=== PATIENT | female | born 1990 | race Caucasian/White ===

== ENCOUNTER 2018-05-20 08:44 | Emergency (ER) | payer OTHER ==
--- NOTE | 2018-05-20 09:08 | UC ---
Respiratory Complaint HPI - HPI Summary HPI Summary: 28 YO FEMALE who comes to clinic today with a chief complaint of cough and chest congestion and wheezing for 2 weeks. The symptoms got much worse over the last 1-2 days. She believes she had a fever yesterday. She's been using her albuterol inhaler. She took prednisone 10 mg by mouth that she had left over from a prior prescription this morning. The cough is productive but she is not seen the phlegm. There is minimal nasal congestion no sore throat except when she's coughing. She is a smoker and does have a history of pneumonia. - History of Current Complaint Stated Complaint: CHEST CONGESTION Time Seen by Provider: 05/20/18 08:54 Hx Last Menstrual Period: 06/25/16 - Allergies/Home Medications Allergies/Adverse Reactions: Allergies Allergy/AdvReac Type Severity Reaction Status Date / Time codeine Allergy Abdominal Verified 05/20/18 08:59 Pain hydrocodone Allergy Abdominal Verified 05/20/18 08:59 Pain ketorolac Allergy Abdominal Verified 05/20/18 08:59 Pain and Headache oxycodone Allergy Abdominal Verified 05/20/18 08:59 Pain Home Medications: Home Medications Albuterol HFA INHALER* [Ventolin HFA Inhaler*] 1 - 2 puff INH Q4H PRN 05/20/18 [ History Confirmed 05/20/18] predniSONE TAB* [Deltasone 10 MG TAB*] 10 mg PO ONCE 05/20/18 [History Confirmed 05/20/18] PMH/Surg Hx/FS Hx/Imm Hx Respiratory History: Asthma, Pneumonia - Surgical History Surgical History: Yes Surgery Procedure, Year, and Place: [facility] 2006. C section x 2. cholecystectomy - Family History Known Family History: Positive: Hypertension, Respiratory Disease - Social History Alcohol Use: None Substance Use Type: None Smoking Status (MU): Light Every Day Tobacco Smoker Type: Cigarettes Amount Used/How Often: < 1/2 ppd Length of Time of Smoking/Using Tobacco: since age 18 Have You Smoked in the Last Year: Yes Household Exposure Type: Cigarettes Review of Systems Constitutional: Fever, Chills Skin: Negative Eyes: Negative ENT: Nasal Discharge Respiratory: Shortness Of Breath, Cough Cardiovascular: Negative Gastrointestinal: Negative Genitourinary: Negative Motor: Negative Neurovascular: Negative Musculoskeletal: Negative Neurological: Negative Psychological: Negative Is Patient Immunocompromised?: No All Other Systems Reviewed And Are Negative: Yes Physical Exam Triage Information Reviewed: Yes Appearance: Ill-Appearing - MILD Vital Signs Reviewed: Yes ENT: Positive: Pharynx normal, Nasal congestion Neck exam: Normal Neck: Positive: Supple Respiratory: Positive: Rhonchi, Wheezing Cardiovascular: Positive: RRR Abdominal Exam: Normal Musculoskeletal: Positive: Strength Intact, ROM Intact Neurological Exam: Normal Psychological Exam: Normal Skin Exam: Normal Respiratory Course/Dx - Course Course Of Treatment: Symptoms greater than 10 days and a smoker. Follow-up primary care doctor if not completely improved for reevaluation sooner if worse. - Differential Dx/Diagnosis Provider Diagnoses: BRONCHITIS. ASTHMA EXACERBATION Discharge - Sign-Out/Discharge Documenting (check all that apply): Patient Departure All imaging exams completed and their final reports reviewed: No Studies - Discharge Plan Condition: Stable Disposition: HOME Prescriptions: Albuterol HFA INHALER* [Ventolin HFA Inhaler*] 2 puff INH Q4H PRN #1 mdi PRN Reason: Wheezing Azithromyxin MARKY (NF) [Z-Marky (Zithromax) 250 mg tabs #6] 2 tab PO .TODAY, THEN 1 DAILY #6 tab predniSONE TAB* [Deltasone 20 MG TAB*] 40 mg PO DAILY #10 tab Patient Education Materials: Asthma (ED), Acute Bronchitis (ED) Referrals: Candis Durham MD [Primary Care Provider] - Additional Instructions: FOLLOW UP WITH YOUR DOCTOR. GET RECHECKED FOR ANY WORSENING OF YOUR CONDITION OR QUESTIONS OR CONCERNS. - Billing Disposition and Condition Condition: STABLE Disposition: Home
[2018-05-20 09:16] VITALS: BP 124/68
--- OUTSIDE RECORDS SUMMARY | 2018-05-21 05:03 | XMS REPORT ---
:1990 External Reference #:[id number] Author Organization [facility] Address [address], [address] [place] [address] Phone [phone] Care Team Providers Name Role Phone Opal Chery PNP-BC, PRINTMAKER, Ibclc Care Team Information It Assistant Unavailable Opal Chery PNP-BC, PRINTMAKER, Ibclc Primary Care Physician Unavailable Payers Type Date Identification Numbers Payment Provider Subscriber Commercial Policy Number: [id number] Brenden Solorio PayID: [id number] [address] [address] [place] [address] Problems Date Description Provider Status Onset: 10/12/2012 Psoriasis Jessica Pugh MD Active Onset: 06/19/2016 Knee pain Jayce Rodriguez M.D. Active Onset: 06/19/2016 Ganglion cyst Jayce Rodriguez M.D. Active Onset: 06/19/2016 Ganglion/synovial cyst - knee Jayce Rodriguez M.D. Active Onset: 09/03/2016 Chondromalacia of patella Jayce Rodriguez M.D. 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 Cigarette Use Current Cigarette Smoker 1 Pack Daily x 7 years ETOH Use Denies alcohol use Recreational Drug Use Denies Drug Use Smoking Light tobacco smoker (10 or fewer cigarettes/day) Allergies, Adverse Reactions, Alerts Date Description Reaction Status Severity Comments 08/28/2011 Codeine vomiting, stomach pain active 07/30/2016 Hydrocodone active itchy and stomach pain 07/02/2010 NKDA inactive Medications Medication Date Status Form Strength Qnty SIG Indications Ordering Provider Ibuprofen 05/06/ Active Tablets 800mg 90tab 1 tab by Vik, 2018 s mouth Opal, three PNP-BC, times a PRINTMAKER, day as Ibclc needed Cyclobenzaprine 04/29/ Active Tablets 10mg 60tab 1 by mouth M25.552 Vik HCL 2018 s three Opal, times a PNP-BC, day as PRINTMAKER, needed Ibclc muscle spasms Ketorolac 04/29/ Active Tablets 10mg 30tab 1 tab M25.552 Vik Tromethamine 2017 s every 4-6 Opal, hours as PNP-BC, needed PRINTMAKER, pain Ibclc Albuterol Sulfate 11/19/ Active Nebulizer (2.5mg/3M 75ml nebulized Marva , 2018 L) 0.083% every 4 Candis, hours as M.D. needed Ventolin HFA 12/06/ Active Aerosol 108(90Bas 18gm 1-2 puffs R05 Marva, 2016 e) every 4-6 Candis, mcg/Act hours as M.D. needed Prednisone 05/06/ Hx Tablets 10mg QS 5 tabs Vik, 2018 - today, Opal, 05/13/ then 4 PNP-, 2018 tabs PRINTMAKER, tomorrow, Ibclc 3 tabs day 3, 2 tabs day 4, and 1 tab day 5 Nitrofurantoin 02/23/ Hx Capsules 100mg 14cap 1 by mouth N39.0 Vik Monohyd Macro 2017 twice a Opal, 04/29/ day PNP-, 2017 PRINTMAKER, Ibclc Guaifenesin 11/19/ Hx Tablets 400mg 30tab 1 tab by Marva, 2017 mouth Candis, 02/23/ every 6 M.D. 2018 hours as needed cough Levaquin 11/14/ Hx Tablets 750mg 7tabs 1 tab PO Q Marva, 2017 Candis, 02/23/ M.D. 2017 Tizanidine HCL 11/12/ Hx Tablets 4mg 30tab take 1 M62.838 Marva, 2017 tablet by Candis, 02/23/ mouth M.D. 2017 every 8 hours as needed Sulfamethoxazole/ 11/12/ Hx Tablets 800-160mg 14tab 1 tab by R30.0 Marva Trimethoprim DS 2017 mouth Candis, 02/23/ twice a M.D. 2018 day x 7 days Flomax 09/09/ Hx Capsules 0.4mg 14cap 1 tab PO Q R30.0 Marva, 2017 daily Candis, 02/23/ M.D. 2018 Famotidine 08/12/ Hx Tablets 20mg 60tab 1 tab by R10.84 Marva, 2016 mouth Candis, 02/23/ twice a M.D. 2017 day Escitalopram 08/12/ Hx Tablets 5mg 30tab 1 tab by F33.1 Marav Oxalate 2016 mouth Candis, 02/23/ every day M.D. 2018 at bedtime Escitalopram 07/09/ Hx Tablets 10mg 30tab 1 by mouth F33.1 Marva, Oxalate 2016 every day Candis, 08/12/ M.D. 2017 Benadryl Allergy 07/09/ Hx Capsules 25mg 30cap 1 tab by Wilberto7Aguilar Durham 2017 - s mouth Candis, 08/12/ every day M.D. 2017 at bedtime Melatonin Maximum 07/09/ Hx Tablets 5mg 30tab 1 tab by [email or web address] Enedina Durham 2017 - s mouth Candis, 08/12/ every day M.D. 2017 at bedtime Gabapentin 06/25/ Hx Capsules 300mg 90cap 300 mg po M79.1 Wong, 2017 - s tid MD Saundra 2017 Duloxetine HCL 05/27/ Hx Caps DR 60mg 30cap One tab po M79.1 Wong, 2017 - Part s qD MD Saundra 2016 Gabapentin 04/25/ Hx Capsules 100mg 90cap 100 mg po Wong, 2016 - s tid MD Saundra 2016 Lyrica 04/11/ Hx Capsules 50mg 90cap 50 mg po M79.1 Wong, 2016 s tid MD Saundra Voltaren 04/10/ Hx Gel 1% 100un apply to [place], 2016 its affected Jaycequeta daily M.D. 2g q4 hours to knee Diclofenac Sodium 02/26/ Hx Tablets DR 75mg 60tab take 1 Alexi2016 s tablet by juan r Eduardo M.DCheri twice daily with food Prednisone 02/19/ Hx Tablets 10mg 36tab take 5 J20.9 Marva, 2017 - s tabs daily Candis, 03/19/ x 3 days, M.D. 2017 4 tabs x 2 days, 3 tabs x 2 days, 2 tabs x 2 days, 1 tab x 3 days, total 12 days Azithromycin 02/19/ Hx Tablets 250mg 6tabs 1 tab take J20.9 Marva 2017 - 2 tabs x Candis, 02/26/ daily days M.D. 2016 then 1 for 4 days Prednisone 02/12/ Hx Tablets 50mg 5tabs 1 tab by Sukhdeep Pascal - mouth Candis, 02/19/ every day M.D. 2017 for 5 days Guaifenesin 02/12/ Hx Tablets 400mg 30tab 1 tab by Conor Durham 2016 - s mouth Candis, 03/19/ every 4 M.D. 2017 hours as needed cough Rid Lice Killing Shampoo 8oz as Marva, 2016 - Directed Candis, M.D. 2016 Nix Creme Rinse 01/08/ Liquid 1% 118ml as Marva, 2016 - directed Candis, M.D. 2016 Amoxicillin 11/20/ Hx Tablets 500mg 20tab 1 tab by J02.9 Marva, 2016 - s mouth Candis, 01/23/ twice a M.D. 2017 day x 10 days Vitamin D3 09/28/ Hx Tablets [id number] 8tabs 1 tab by Vik 2017 - mouth once Opal, 02/12/ weekly PNP-BC, 2017 PRINTMAKER, Ibclc Wellbutrin SR 09/25/ Hx Tablets ER 100mg 30tab take one Marva, 2016 - 12HR s pill each Candis, day M.D. 2016 Wellbutrin SR 09/25/ Hx Tablets ER 100mg take one F17.210 Marva, 2016 - 12HR pill by Candis, 09/25/ mouth in M.D. 2016 in the morning Bupropion HCL ER 09/25/ Hx Tablets ER 150mg 60tab 1 pill F17.210 Marva, (Smoking Det) 2017 - 12HR s daily and Candis 09/25/ can M.D. 2016 titrate up to 1 pill bid Bupropion HCL ER 09/25/ Hx Tablets ER 100mg 60tab 1 by mouth F17.210 Marva, (SR) 2016 - 12HR s twice a Candis, 11/20/ day M.D. 2016 Tramadol HCL 07/16/ Hx Tablets 50mg 60tab 1 tablet Michael, 2015 - s every 6 Jayce, 09/02/ hours as M.D. 2016 needed for pain Prednisone 06/21/ Hx Tablets 50mg 5tabs 1 tab by J20.9 Marva 2015 - mouth Candis, 07/04/ every day M.D. 2016 for 5 days Azithromycin 06/21/ Hx Tablets 250mg 6tabs 1 tab take J20.9 Marva, 2015 - 2 tabs x Candis, 07/04/ daily days M.D. 2016 then 1 for 4 days Nabumetone 03/11/ Hx Tablets 500mg 60tab take 1 Michael, 2015 - s tablet by Jayce, 06/05/ mouth 2 M.D. 2016 times a day with food Meloxicam 01/21/ Hx Tablets 15mg 30tab 1 by mouth Michael, 2015 every day Jayce, 03/11/ c food M.D. 2016 Naproxen 01/16/ Hx Tablets 500mg 60tab 500 mg by M25.561 Marva, 2015 - mouth Candis, 01/20/ every 12 M.D. 2016 hours prn Rizatriptan 12/20/ Hx Tablets 10mg 30tab 1 tab PO G43.009 Marva Benzoate 2015 at [place], 04/24/ migraine M.D. 2016 start, Q2H x 2, max 3x daily Riboflavin 12/20/ Hx Tablets 400mg 30tab take 1 tab G43.009 Marva, 2015 by mouth Candis, 04/24/ every M.D. 2015 daily Magnesium 12/20/ Hx Capsules 300mg 30cap take 1 tab G43.009 Marva, 2015 PO Q daily Candis, 04/24/ M.D. 2015 No Active 12/06/ Hx Unknown Medications 2015 - 2015 Sumatriptan 12/06/ Hx Tablets 100mg 14tab take 1 G43.009 Marva, Succinate 2015 pill at [place], 12/20/ headache M.D. 2015 onset and another pill 2 hours later if pain not relieved. max 200mg/day Nicotine 12/06/ Hx Lozenges 4mg 72uni 1 lozenges F17.210 Marva, Polacrilex 2016 - ts every 1-2 Candis, 01/16/ hours as M.D. 2016 needed Nicotine 12/06/ Hx Gum 4mg 110un chew 1 F17.210 Marva, Polacrilex 2016 - its piece q1-2 Candis, 01/16/ hours when M.D. 2016 craving Meloxicam 07/19/ Hx Tablets 7.5mg 30tab 1 tab PO Q M25.532 Marva, 2014 - s daily prn Candis, 12/06/ pain M.D. 2015 Ciprofloxacin HCL 02/24/ Hx Tablets 500mg 14tab 1 by mouth Lexy 2014 - s twice a Jessica 03/03/ day MD 2014 Bupropion HCL ER 02/07/ Hx Tablets ER 150mg 60tab 1 by mouth Lexy (SR) 2014 - 12HR s twice a Jessica day MD 2014 Chantix Starting 01/24/ Hx Tablets 0.5mg X 1pack as Lexy, Month John 2014 - & 1 mg directed Jessica 02/07/ X 42 MD 2014 Tri-Sprintec 01/24/ Hx Tablets 0.18/0.21 28tab 1 by mouth Lexy 2014 - 5/0.25 s every day Jessica 07/19/ mg-35 mcg MD 2014 Folic Acid 12/23/ Hx Tablets 1mg 30tab 1 po qd Lexy 2012 - s Jessica 01/24/ MD 2014 Mometasone 10/12/ Hx Ointment 0.1% 30uni apply to Lexy Furoate 2012 - ts lesions Jessica 01/24/ bid MD 2015 Ltr-Sh-Fgwonjik 06/09/ Hx Tablets 28tab 1 po qd Lexy 2011 - s Jessica 01/24/ MD 2014 Ibuprofen 05/20/ Hx Tablets 600mg 50tab one q 4 Lexy 2011 - s hours by Jessica 07/19/ mouth MD lucía 2014 needed Oxycodone/Acetami 05/20/ Hx Tablets 5-325mg 20tab 1-2 po q 4 marilin Pugh 2011 - s hours prn Jessica 01/24/ MD 2014 Pepcid / Hx Tablets 40mg po bid Unknown 0000 - 2014 Ondansetron HCL / Hx Tablets 4mg 1 tab Unknown 0000 - every 6hr 07/19/ as needed 2014 for nausea Cimetidine / Hx Tablets 400mg 1 by mouth Unknown 0000 - twice a 2014 Ibuprofen /00/ Hx Unknown 0000 - 2015 Diphenhydramine / Hx Capsules 25mg as needed Ismael, HCL 0000 - Jaleesa, 07/30/ PA-C 2016 Mucinex 00/ Hx Tablets ER 600mg 1 by mouth Unknown 0000 - 12HR three 07/30/ times a 2015 day Ibuprofen 00/ Hx Tablets 200mg 4 by mouth Unknown 0000 - twice a 2016 Acetaminophen 00/ Hx Tablets 500mg 2 tabs by Unknown 0000 - mouth 07/09/ every 8 2017 hours as needed pain, mdd=3g Ciprofloxacin HCL / Hx Tablets 500mg Slaughter, 0000 Kevin Phenazopyridine / Hx Tablets 100mg Slaughter, HCL 0000 Kevin Lyrica Hx Capsules 25mg take one Unknown 0000 - capsule by mouth 2018 twice a day maximum daily dose=2 capsules reference #: [id number] Medications Administered in Office Medication Date Status Form Strength Qnty SIG Indications Ordering Provider Unclassified Administered Injection Cator, Drugs- 017 MD Saundra Verapamil 2.5MG/ML Depomedrol 80 Administered Injection Friedman, mg 017 Barbara Jane [facility] Immunizations CPT Code Status Date Vaccine Lot # [id number] Given 09/25/2016 Influenza Virus Vaccine Split Virus Use For [id number] Individual 3Yr Older 26792 Given 06/21/2016 Influenza Virus Vaccine Split Virus Use For [id number] Individual 3Yr Older [id number] Given 08/17/2015 Influenza Vaccine (Fluzone) Age 3 And Older [id number] Given 09/14/2012 flu vaccination 60810 Refused 07/09/2017 Influenza Virus Vaccine Quadrivalent Iiv4 Split Preser Free Id Vital Signs Date Vital Result Comment 04/29/2018 BP Systolic 104 mmHg BP Diastolic 64 mmHg Body Temperature 98.5 F Heart Rate 88 /min Respiratory Rate 20 /min Height 64 inches 5'4" Weight 208.00 lb BMI (Body Mass Index) 35.7 kg/m2 BSA (Body Surface Area) 1.99 m2 Sullivan body weight in kilograms 54 O2 % BldC Oximetry 97 % 02/23/2018 BP Systolic 118 mmHg BP Diastolic 66 mmHg Body Temperature 98.7 F Heart Rate 91 /min Respiratory Rate 17 /min Height 64 inches 5'4" Weight 210.00 lb BMI (Body Mass Index) 36.0 kg/m2 BSA (Body Surface Area) 2.00 m2 Sullivan body weight in kilograms 54 O2 % BldC Oximetry 98 % 11/12/2017 BP Systolic Sitting Right Arm 108 mmHg BP Diastolic Sitting Right Arm 76 mmHg Body Temperature 98.8 F Height 64 inches 5'4" Weight 207.38 lb BMI (Body Mass Index) 35.6 kg/m2 BSA (Body Surface Area) 1.99 m2 Sullivan body weight in kilograms 54 09/09/2017 BP Systolic Sitting Left Arm 118 mmHg BP Diastolic Sitting Left Arm 78 mmHg Body Temperature 98.1 F Height 64 inches 5'4" Weight 202.12 lb BMI (Body Mass Index) 34.7 kg/m2 BSA (Body Surface Area) 1.97 m2 Sullivan body weight in kilograms 54 Last Menstrual Period [id number] 08/12/2017 BP Systolic 116 mmHg BP Diastolic 78 mmHg Height 66 inches 5'6" Weight 205.12 lb BMI (Body Mass Index) 33.1 kg/m2 BSA (Body Surface Area) 2.02 m2 Sullivan body weight in kilograms 59 07/23/2017 BP Systolic Sitting Left Arm 116 mmHg BP Diastolic Sitting Left Arm 73 mmHg Body Temperature 98.5 F Heart Rate 85 /min Height 66 inches 5'6" Weight 204.00 lb BMI (Body Mass Index) 32.9 kg/m2 BSA (Body Surface Area) 2.02 m2 Sullivan body weight in kilograms 59 07/18/2017 BP Systolic Sitting Left Arm 101 mmHg BP Diastolic Sitting Left Arm 71 mmHg Body Temperature 98.5 F Heart Rate 93 /min Height 66 inches 5'6" Weight 204.00 lb BMI (Body Mass Index) 32.9 kg/m2 BSA (Body Surface Area) 2.02 m2 Sullivan body weight in kilograms 59 07/11/2017 BP Systolic Sitting Left Arm 120 mmHg BP Diastolic Sitting Left Arm 72 mmHg Body Temperature 98.5 F Heart Rate 80 /min Respiratory Rate 18 /min Height 66 inches 5'6" Weight 203.00 lb BMI (Body Mass Index) 32.8 kg/m2 BSA (Body Surface Area) 2.01 m2 Sullivan body weight in kilograms 59 Last Menstrual Period [id number] 07/09/2017 BP Systolic 120 mmHg BP Diastolic 72 mmHg Height 66 inches 5'6" Weight 205.50 lb BMI (Body Mass Index) 33.2 kg/m2 BSA (Body Surface Area) 2.02 m2 Sullivan body weight in kilograms 59 06/25/2017 BP Systolic Sitting Left Arm 121 mmHg BP Diastolic Sitting Left Arm 78 mmHg Body Temperature 98.8 F Heart Rate 75 /min Height 66 inches 5'6" Weight 206.00 lb BMI (Body Mass Index) 33.2 kg/m2 BSA (Body Surface Area) 2.03 m2 Sullivan body weight in kilograms 59 05/14/2017 BP Systolic Sitting Left Arm 134 mmHg BP Diastolic Sitting Left Arm 79 mmHg Body Temperature 99.2 F Heart Rate 91 /min Height 66 inches 5'6" Weight 203.00 lb BMI (Body Mass Index) 32.8 kg/m2 BSA (Body Surface Area) 2.01 m2 Sullivan body weight in kilograms 59 04/11/2017 BP Systolic Sitting Left Arm 118 mmHg BP Diastolic Sitting Left Arm 79 mmHg Body Temperature 98.9 F Heart Rate 83 /min Height 66 inches 5'6" Weight 203.00 lb BMI (Body Mass Index) 32.8 kg/m2 BSA (Body Surface Area) 2.01 m2 Sullivan body weight in kilograms 59 02/19/2017 BP Systolic Sitting Left Arm 122 mmHg BP Diastolic Sitting Left Arm 76 mmHg Body Temperature 99.2 F Height 66 inches 5'6" Weight 204.25 lb BMI (Body Mass Index) 33.0 kg/m2 BSA (Body Surface Area) 2.02 m2 Sullivan body weight in kilograms 59 02/12/2017 BP Systolic Sitting Left Arm 126 mmHg BP Diastolic Sitting Left Arm 78 mmHg Body Temperature 98.6 F Height 66 inches 5'6" Weight 201.25 lb BMI (Body Mass Index) 32.5 kg/m2 BSA (Body Surface Area) 2.01 m2 Sullivan body weight in kilograms 59 01/23/2017 BP Systolic Sitting Left Arm 112 mmHg BP Diastolic Sitting Left Arm 70 mmHg Body Temperature 98.0 F Height 66 inches 5'6" Weight 204.12 lb BMI (Body Mass Index) 32.9 kg/m2 BSA (Body Surface Area) 2.02 m2 Sullivan body weight in kilograms 59 11/20/2016 BP Systolic Sitting Left Arm 126 mmHg BP Diastolic Sitting Left Arm 74 mmHg Body Temperature 100.4 F Height 64 inches 5'4" Weight 206.00 lb BMI (Body Mass Index) 35.4 kg/m2 BSA (Body Surface Area) 1.98 m2 Sullivan body weight in kilograms 54 09/25/2016 BP Systolic Sitting Left Arm 114 mmHg BP Diastolic Sitting Left Arm 72 mmHg Height 64 inches 5'4" Weight 204.38 lb BMI (Body Mass Index) 35.1 kg/m2 BSA (Body Surface Area) 1.97 m2 Sullivan body weight in kilograms 54 Last Menstrual Period [id number] 07/04/2016 BP Systolic 112 mmHg BP Diastolic 70 mmHg Height 64 inches 5'4" Weight 209.00 lb BMI (Body Mass Index) 35.9 kg/m2 BSA (Body Surface Area) 1.99 m2 06/21/2016 BP Systolic Sitting Left Arm 122 mmHg BP Diastolic Sitting Left Arm 80 mmHg Body Temperature 99.4 F Heart Rate 80 /min Height 64 inches 5'4" Weight 206.00 lb BMI (Body Mass Index) 35.4 kg/m2 BSA (Body Surface Area) 1.98 m2 Sullivan body weight in kilograms 54 Last Menstrual Period [id number] O2 % BldC Oximetry 98 % 05/24/2016 BP Systolic Sitting Left Arm 106 mmHg BP Diastolic Sitting Left Arm 64 mmHg Body Temperature 99.7 F Heart Rate 72 /min Respiratory Rate 24 /min Height 64 inches 5'4" Weight 206.12 lb BMI (Body Mass Index) 35.4 kg/m2 BSA (Body Surface Area) 1.98 m2 Sullivan body weight in kilograms 54 Last Menstrual Period [id number] 01/22/2016 BP Systolic 111 mmHg BP Diastolic 76 mmHg Heart Rate 79 /min Height 64.15 inches 5'4.15" Weight 201.00 lb BMI (Body Mass Index) 34.3 kg/m2 BSA (Body Surface Area) 1.96 m2 01/17/2016 BP Systolic Sitting Left Arm 112 mmHg BP Diastolic Sitting Left Arm 64 mmHg Height 64 inches 5'4" Weight 200.25 lb BMI (Body Mass Index) 34.4 kg/m2 BSA (Body Surface Area) 1.96 m2 Last Menstrual Period [id number] 12/21/2015 BP Systolic 110 mmHg BP Diastolic 64 mmHg Body Temperature 98.8 F Height 64 inches 5'4" Weight 200.00 lb BMI (Body Mass Index) 34.3 kg/m2 BSA (Body Surface Area) 1.96 m2 12/07/2015 BP Systolic Sitting Left Arm 112 mmHg BP Diastolic Sitting Left Arm 74 mmHg Body Temperature 99.1 F Heart Rate 80 /min Respiratory Rate 19 /min Height 64 inches 5'4" Weight 202.00 lb BMI (Body Mass Index) 34.7 kg/m2 BSA (Body Surface Area) 1.96 m2 08/17/2015 BP Systolic Sitting Left Arm 122 mmHg BP Diastolic Sitting Left Arm 76 mmHg Heart Rate 72 /min Respiratory Rate 19 /min Height 64 inches 5'4" Weight 202.00 lb BMI (Body Mass Index) 34.7 kg/m2 BSA (Body Surface Area) 1.96 m2 07/19/2015 BP Systolic 114 mmHg BP Diastolic 74 mmHg Height 64 inches 5'4" Weight 199.12 lb BMI (Body Mass Index) 34.2 kg/m2 BSA (Body Surface Area) 1.95 m2 Last Menstrual Period [id number] 02/22/2015 BP Systolic 124 mmHg BP Diastolic 70 mmHg Body Temperature 97.3 F Height 64 inches 5'4" Weight 198.12 lb BMI (Body Mass Index) 34.0 kg/m2 BSA (Body Surface Area) 1.95 m2 02/15/2015 Height 64 inches 5'4" Weight 197.00 lb BMI (Body Mass Index) 33.8 kg/m2 BSA (Body Surface Area) 1.94 m2 02/07/2015 BP Systolic 126 mmHg BP Diastolic 72 mmHg Height 64 inches 5'4" Weight 200.00 lb BMI (Body Mass Index) 34.3 kg/m2 BSA (Body Surface Area) 1.96 m2 02/01/2015 Height 65 inches 5'5" Weight 200.00 lb BMI (Body Mass Index) 33.3 kg/m2 BSA (Body Surface Area) 1.98 m2 01/24/2015 BP Systolic 122 mmHg BP Diastolic 70 mmHg Height 65 inches 5'5" Weight 200.00 lb BMI (Body Mass Index) 33.3 kg/m2 BSA (Body Surface Area) 1.98 m2 10/12/2012 BP Systolic 108 mmHg BP Diastolic 70 mmHg Body Temperature 98.0 F Height 66 inches 5'6" Weight 183.00 lb 06/09/2012 BP Systolic 110 mmHg BP Diastolic 72 mmHg Height 65 inches 5'5" Weight 188.00 lb BSA (Body Surface Area) 1.93 m2 04/23/2012 BP Systolic 120 mmHg BP Diastolic 82 mmHg Height 65 inches 5'5" Weight 190.00 lb 08/28/2011 Height 64.5 inches 5'4.50" Weight 178.00 lb BMI (Body Mass Index) 30.1 kg/m2 07/02/2010 Body Temperature 98.0 F Heart Rate 84 /min Respiratory Rate 18 /min Height 64.50 inches 5'4.50" Weight 170.00 lb BMI (Body Mass Index) 28.7 kg/m2 Last Menstrual Period 0 Results Test Date Test Result H/L Range Note Urine Culture 02/23/2018 Urine Culture MIXED URETHRAL F <SEE NOTE> 1, 2 Quantity 50,000 - 100,000 <SEE NOTE> 1, 3 Ua Routine 02/23/2018 Ua Specific [place] 1.010 1.010-1.030 Ua PH 6.0 Low 6.5-7.5 Ua Color yellow, pale Yellow Ua Appera clear Ua WBC Trace Ua Protein Negative Negative Ua Glucose Negative Negative Ua Ketones Negative Negative Ua Bilirubin Negative Negative Ua Nitrite Negative Negative Ua Occult Blood +++ Comprehensive Metabolic Panel 11/12/2017 Glucose 105 mg/dL 74-106 4 BUN 6 mg/dL Low 7-18 4 Creatinine 0.7 mg/dL 0.6-1.3 4 Glom Filtration Rate, Estimate >60 mL/min >60 4 If >60 mL/min >60 4, 5 BUN/Creat 8.5 ratio 4 Sodium 137 mmol/L 136-145 4 Potassium 4.1 mmol/L 3.5-5.1 4 Chloride 106 mmol/L 98-107 4 Carbon Dioxide 26 mmol/L 21-32 4 Anion Gap 5 mEq/L Low 8-16 4 Calcium 8.9 mg/dL 8.5-10.1 4 Total Protein 7.3 g/dL 6.4-8.2 4 Albumin 3.6 g/dL 3.4-5.0 4 Globulin 3.7 g/dL 1.9-4.3 4 Alb/Glob 1.0 ratio 4 Bilirubin,Total 0.2 mg/dL 0.2-1.0 4 Sgot/Ast 17 U/L 15-37 4 SGPT/Alt 24 U/L 12-78 4 Alkaline Phosphatase 77 U/L 45-117 4 CBS W/Automated Diff 11/12/2017 White Blood Count 14.3 K/uL High 3.1-10.7 4 Red Blood Count 4.62 M/uL 3.90-5.40 4 Hemoglobin 14.6 gm/dL 11.6-15.8 4 Hematocrit 43.0 % 36.0-46.1 4 Mean Cell Volume 93.1 fl 80.9-99.0 4 Mean Corpuscular HGB 31.6 pg 25.9-32.7 4 Mean Corpuscular HGB Conc 34.0 g/dL 30.8-34.3 4 Platelet Count 284 K/uL 155-360 4 Red Cell Distri Width SD 45.3 fl 3-47 4 Red Cell Distri Width %CV 13.7 % 11.7-14.4 4 Mean Platelet Volume 10.8 fL 8.9-12.4 4 Neut% 69.8 % 40.4-72.8 4 Lymph % 23.8 % 20.0-42.0 4 [place] % 5.8 % 4.3-13.2 4 Eo% 0.4 % 0.0-6.6 4 Bas% 0.2 % 0.0-1.1 4 Neut# 9.97 K/uL High 1.8-7.0 4 Lymph # 3.39 K/uL 1.0-4.0 4 [place] # 0.82 K/uL 0.3-0.9 4 Eos # 0.05 K/uL 0.0-0.5 4 Baso # 0.03 K/uL 0.0-0.1 4 Laboratory test finding 11/12/2017 Lipase 115 U/L 56-289 4 Amylase 50 U/L 25-115 4 Urine Culture 11/12/2017 Urine Culture ESCHERICHIA COLI 4, 6 Quantity > 100,000 CFU/mL 4, 7 Urine Culture URETHRAL GLORIA 4 Quantity 10,000 - 50,000 <SEE NOTE> 4, 8 Slide Review 11/12/2017 Slide Review . 4 Escherichia Coli 11/12/2017 Nitrofurantoin <=16 4 Trimethoprim/Sulfamethoxazole <=20 4 Ampicillin 4 4 Cefazolin <=4 4 Ampicillin/Sulbactam <=2 4 Ciprofloxacin <=0.25 4 Piperacillin/Tazobactam <=4 4 Ceftazidime <=1 4 Ceftriaxone <=1 4 Cefepime <=1 4 Levofloxacin <=0.12 4 Imipenem <=0.25 4 Gentamicin <=1 4 Tobramycin <=1 4 Urine Culture 09/09/2017 Urine Culture MIXED URETHRAL F <SEE NOTE> 9, 10 Quantity 50,000 - 100,000 <SEE NOTE> 9, 11 Laboratory test finding 07/11/2017 Sedimentation Rate 4 mm/hr 0-20 12, 13 C-Reactive Protein,Cardiac 1.06 mg/L <3.0 12 CBS W/Automated Diff 07/11/2017 White Blood Count 6.4 K/uL 3.1-10.7 12 Red Blood Count 4.73 M/uL 3.90-5.40 12 Hemoglobin 14.8 gm/dL 11.6-15.8 12 Hematocrit 44.4 % 36.0-46.1 12 Mean Cell Volume 93.9 fl 80.9-99.0 12 Mean Corpuscular HGB 31.3 pg 25.9-32.7 12 Mean Corpuscular HGB Conc 33.3 g/dL 30.8-34.3 12 Platelet Count 317 K/uL 150-400 12 Red Cell Distri Width SD 43.9 fl 3-47 12 Red Cell Distri Width %CV 13.1 % 11.7-14.4 12 Mean Platelet Volume 10.6 fL 8.9-12.4 12 Neut% 55.4 % 40.4-72.8 12 Lymph % 36.9 % 20.0-42.0 12 [place] % 6.6 % 4.3-13.2 12 Eo% 0.8 % 0.0-6.6 12 Bas% 0.3 % 0.0-1.1 12 Neut# 3.52 K/uL 1.8-7.0 12 Lymph # 2.35 K/uL 1.0-4.0 12 [place] # 0.42 K/uL 0.3-0.9 12 Eos # 0.05 K/uL 0.0-0.5 12 Baso # 0.02 K/uL 0.0-0.1 12 Comprehensive Metabolic Panel 07/11/2017 Glucose 99 mg/dL 74-106 12 BUN 7 mg/dL 7-18 12 Creatinine 0.7 mg/dL 0.6-1.3 12 Glom Filtration Rate, Estimate >60 mL/min >60 12 If >60 mL/min >60 12, 14 BUN/Creat 10.0 ratio 12 Sodium 140 mmol/L 136-145 12 Potassium 3.8 mmol/L 3.5-5.1 12 Chloride 105 mmol/L 98-107 12 Carbon Dioxide 27 mmol/L 21-32 12 Anion Gap 8 mEq/L 8-16 12 Calcium 8.9 mg/dL 8.5-10.1 12 Total Protein 7.3 g/dL 6.4-8.2 12 Albumin 3.7 g/dL 3.4-5.0 12 Globulin 3.6 g/dL 1.9-4.3 12 Alb/Glob 1.0 ratio 12 Bilirubin,Total 0.2 mg/dL 0.2-1.0 12 Sgot/Ast 17 U/L 15-37 12 SGPT/Alt 29 U/L 12-78 12 Alkaline Phosphatase 73 U/L 45-117 12 Laboratory test finding 07/11/2017 Rheumatoid Factor < 10.0 IU/mL 0.0- 15.0 12 Screen Uric Acid 5.6 mg/dL 2.6-6.0 12 CCP Igg/Iga 07/11/2017 CCP Igg/Iga 3 units 0-19 12, 15 Antibodies Antibodies Laboratory test 07/11/2017 Anti-Nuclear Negative AU/mL Negative 12, 16 finding Antibodies Direct Sodium SerPl-sCnc 04/08/2017 Sodium SerPl-sCnc 144 136-145 Serum or plasma 04/08/2017 Serum or plasma 0.4 0.2-1.0 total bilirubin total bilirubin measurement (mass/ measurement (mass/volume) Serum or plasma 04/08/2017 Serum or plasma 124 73-393 lipase measurement lipase measurement (enzymatic acti (enzymatic activity/volume) RDW RBC Auto-Rto 04/08/2017 RDW RBC Auto-Rto 13.3 11.7-14.4 RDW RBC Auto 04/08/2017 RDW RBC Auto 43.9 3-47 Prot Ur 04/08/2017 Prot Ur 100 High Negative Strip.auto-mCnc Strip.auto-mCnc Prot SerPl-mCnc 04/08/2017 Prot SerPl-mCnc 7.1 6.4-8.2 Potassium SerPl-sCnc 04/08/2017 Potassium 4.0 3.5-5.1 SerPl-sCnc Platelets [#/volume] 04/08/2017 Platelets 288 150-400 in Blood by [#/volume] in Automated count Blood by Automated count PMV Bld Auto 04/08/2017 PMV Bld Auto 10.3 8.9-12.4 Nitrite Ur Ql 04/08/2017 Nitrite Ur Ql Positive High Negative Strip.auto Strip.auto Neuts Seg/leuk NFr 04/08/2017 Neuts Seg/leuk NFr 72 33-73 Bld Manual Bld Manual Neuts Band/leuk NFr 04/08/2017 Neuts Band/leuk 8 0-8 Bld Manual NFr Bld Manual Neutrophils # Bld 04/08/2017 Neutrophils # Bld 11.59 High 1.8-7.0 Auto Auto Mucus [Presence] in 04/08/2017 Mucus [Presence] Small None Seen Urine sediment by in Urine sediment Light micros by Light microscopy Monocytes/100 04/08/2017 Monocytes/100 3 0-10 leukocytes in Blood leukocytes in by Manual count Blood by Manual count MCV RBC Auto 04/08/2017 MCV RBC Auto 92.9 80.9-99.0 Comprehensive 04/08/2017 Glucose 108 mg/dL High 74-106 17 Metabolic Panel BUN 6 mg/dL Low 7-18 17 Creatinine 0.7 mg/dL 0.6-1.3 17 Glom Filtration Rate, Estimate >60 mL/min >60 17 If >60 mL/min >60 17, 18 BUN/Creat 8.5 ratio 17 Sodium 144 mmol/L 136-145 17 Potassium 4.0 mmol/L 3.5-5.1 17 Chloride 109 mmol/L High 98-107 17 Carbon Dioxide 28 mmol/L 21-32 17 Anion Gap 7 mEq/L Low 8-16 17 Calcium 8.6 mg/dL 8.5-10.1 17 Total Protein 7.1 g/dL 6.4-8.2 17 Albumin 3.5 g/dL 3.4-5.0 17 Globulin 3.6 g/dL 1.9-4.3 17 Alb/Glob 1.0 ratio 17 Bilirubin,Total 0.4 mg/dL 0.2-1.0 17 Sgot/Ast 12 U/L Low 15-37 17, 19 SGPT/Alt 18 U/L 12-78 17 Alkaline Phosphatase 84 U/L 45-117 17 Laboratory test finding 04/08/2017 Lipase 124 U/L 73-393 17 Urine HCG (Qualitative) 04/08/2017 Urine HCG NEGATIVE Negative 17, 20 (Qualitative) Source: URINE, CLEAN CAT <SEE NOTE> 17, 21 Ua Routine 04/08/2017 Urine Color YELLOW Yellow 17 Urine Clarity SL CLOUDY Clear 17 Urine Glucose - Dipstick NEGATIVE mg/dL Negative 17 Urine Bilirubin - Dipstick NEGATIVE Negative 17 Urine Ketone NEGATIVE mg/dL Negative 17 Urine Specific [place] 1.025 1.010-1.030 17 Urine Blood LARGE Negative 17 Urine PH 6.0 Low 6.5-7.5 17 Urine Protein - Dipstick 100 mg/dL High Negative 17 Urine Urobilinogen - Dipstick 0.2 E.U./dL 0.2-1.0 17 Urine Nitrite - Dipstick POSITIVE Negative 17 Urine Leuk Esterase MODERATE Negative 17 Urine RBC >50 rbc/hpf High 0-2 17 Urine WBC > 50 wbc/hpf High 0-7 17 Urine Epithelial Cells FEW /lpf None Seen 17 Urine Mucus SMALL None Seen 17 Urine Amorph Sediment SMALL Negative 17 Source: URINE, CLEAN CAT <SEE NOTE> 17, 22 Culture If Indicated 04/08/2017 Culture If Indicated CULTURE TO FOLLO 17, 23 Comment Comment <SEE NOTE> Source: URINE, CLEAN CAT <SEE NOTE> 17, 24 CBS W/Automated Diff 04/08/2017 White Blood Count 16.1 K/uL High 3.1-10.7 17 Red Blood Count 4.68 M/uL 3.90-5.40 17 Hemoglobin 15.0 gm/dL 11.6-15.8 17 Hematocrit 43.5 % 36.0-46.1 17 Mean Cell Volume 92.9 fl 80.9-99.0 17 Mean Corpuscular HGB 32.1 pg 25.9-32.7 17 Mean Corpuscular HGB Conc 34.5 g/dL High 30.8-34.3 17 Platelet Count 288 K/uL 150-400 17 Red Cell Distri Width SD 43.9 fl 3-47 17 Red Cell Distri Width %CV 13.3 % 11.7-14.4 17 Mean Platelet Volume 10.3 fL 8.9-12.4 17, 25 Neut# 11.59 K/uL High 1.8-7.0 17 Lymph # 3.31 K/uL 1.0-4.0 17 [place] # 1.03 K/uL High 0.3-0.9 17 Eos # 0.11 K/uL 0.0-0.5 17 Baso # 0.03 K/uL 0.0-0.1 17 pH Ur Strip.auto 04/08/2017 pH Ur Strip.auto 6.0 Low 6.5-7.5 WBC # Bld Auto 04/08/2017 WBC # Bld Auto 16.1 High 3.1-10.7 Urobilinogen Ur 04/08/2017 Urobilinogen Ur 0.2 0.2-1.0 Strip-aCnc Strip-aCnc Urine total bilirubin 04/08/2017 Urine total bilirubin Negative Negative detection by automated detection by automated test test strip Urine human chorionic 04/08/2017 Urine human chorionic Negative Negative gonadotropin (hCG) gonadotropin (hCG) detection detection Urine hemoglobin 04/08/2017 Urine hemoglobin Large High Negative detection by automated detection by automated test strip test strip Urine glucose 04/08/2017 Urine glucose Negative Negative measurement by measurement by automated test strip automated test strip (mass/volume) Urine appearance 04/08/2017 Urine appearance SL Cloudy Clear determination determination Unloinc 04/08/2017 Unloinc Diff Ordered Unloinc Culture To Follow Total Cells Counted Bld 04/08/2017 Total Cells Counted Bld 100 Specific gravity of 04/08/2017 Specific gravity of 1.025 1.010-1.030 Urine by Automated test Urine by Automated test strip strip Blood erythrocytes 04/08/2017 Blood erythrocytes 4.68 3.90-5.40 automated count automated count (number/volume) (number/volume) Basophils [#/volume] in 04/08/2017 Basophils [#/volume] in 0.03 0.0-0.1 Blood by Automated count Blood by Automated count BUN/Creat SerPl 04/08/2017 BUN/Creat SerPl 8.5 BUN SerPl-mCnc 04/08/2017 BUN SerPl-mCnc 6 Low 7-18 Automated erythrocyte 04/08/2017 Automated erythrocyte 34.5 High 30.8- 34.3 mean corpuscular mean corpuscular hemoglobin hemoglobin concentration measurement (mass/volume) Automated erythrocyte 04/08/2017 Automated erythrocyte 32.1 25.9-32.7 mean corpuscular mean corpuscular hemoglobin hemoglobin (mass per erythrocyte) Aspartate 04/08/2017 Aspartate 12 Low 15-37 aminotransferase aminotransferase [Enzymatic activity/vol [Enzymatic activity/volume] in Serum or Plasma Anion Gap SerPl-sCnc 04/08/2017 Anion Gap SerPl-sCnc 7 Low 8-16 Amorphous sediment 04/08/2017 Amorphous sediment Small Negative [Presence] in Urine [Presence] in Urine sediment by sediment by Light microscopy Albumin/Glob SerPl 04/08/2017 Albumin/Glob SerPl 1.0 Albumin SerPl-mCnc 04/08/2017 Albumin SerPl-mCnc 3.5 3.4-5.0 Alt SerPl-cCnc 04/08/2017 Alt SerPl-cCnc 18 12-78 Alp SerPl-cCnc 04/08/2017 Alp SerPl-cCnc 84 45-117 Ast-GN67 04/08/2017 Nitrofurantoin <=16 17 Trimethoprim/Sulfamethoxazole <=20 17 Ampicillin <=2 17 Cefazolin <=4 17 Ampicillin/Sulbactam <=2 17 Ciprofloxacin <=0.25 17 Piperacillin/Tazobactam <=4 17 Ceftazidime <=1 17 Ceftriaxone <=1 17 Cefepime <=1 17 Levofloxacin <=0.12 17 Imipenem <=0.25 17 Gentamicin <=1 17 Tobramycin <=1 17 Urine Culture 04/08/2017 Urine Culture ESCHERICHIA COLI 17, 26 Quantity > 100,000 CFU/mL 17, 27 Differential-WBC Confirm 04/08/2017 Total Cells Counted 100 #CELLS 17 Band% 8 % 0-8 17 Neutrophils% 72 % 33-73 17 Lymph% 14 % Low 20-42 17 Atypical Lymph% 3 % 0-7 17 Monocyte% 3 % 0-10 17 Platelet Estimate NORMAL 17 Anisocytosis 0-1+ 17 Slide Review 04/08/2017 Slide Review DIFF ORDERED 17 Lymphocytes/100 04/08/2017 Lymphocytes/100 14 Low 20-42 leukocytes in Blood leukocytes in Blood by Manual coun by Manual count Lymphocytes 04/08/2017 Lymphocytes 3 0-7 variant/100 variant/100 leukocytes in blood leukocytes in blood by man by manual count Lymphocytes 04/08/2017 Lymphocytes 3.31 1.0-4.0 [#/volume] in Blood [#/volume] in Blood by Automated count by Automated count Leukocyte esterase Ur 04/08/2017 Leukocyte esterase Ur Moderate High Negative Ql Strip.auto Ql Strip.auto Ketones Ur 04/08/2017 Ketones Ur Negative Negative Strip.auto-mCnc Strip.auto-mCnc Hct VFr Bld Auto 04/08/2017 Hct VFr Bld Auto 43.5 36.0-46.1 Glucose [Mass/volume] 04/08/2017 Glucose [Mass/volume] 108 High 74-106 in Serum or Plasma in Serum or Plasma Globulin Ser 04/08/2017 Globulin Ser 3.6 1.9-4.3 Calc-mCnc Calc-mCnc Epithelial cells 04/08/2017 Epithelial cells Few None Seen [Presence] in Urine [Presence] in Urine sediment by L sediment by Light microscopy Blood hemoglobin 04/08/2017 Blood hemoglobin 15.0 11.6-15.8 measurement measurement (mass/volume) (mass/volume) Blood monocytes 04/08/2017 Blood monocytes 1.03 High 0.3-0.9 automated count automated count (number/volume) (number/volume) Blood platelet 04/08/2017 Blood platelet Normal adequacy detection by adequacy detection by light microsc light microscopy Co2 SerPl-sCnc 04/08/2017 Co2 SerPl-sCnc 28 21-32 Calcium SerPl-mCnc 04/08/2017 Calcium SerPl-mCnc 8.6 8.5-10.1 Chloride SerPl-sCnc 04/08/2017 Chloride SerPl-sCnc 109 High 98-107 Color Ur 04/08/2017 Color Ur Yellow Yellow Eosinophil # Bld Auto 04/08/2017 Eosinophil # Bld Auto 0.11 0.0-0.5 Creat SerPl-mCnc 04/08/2017 Creat SerPl-mCnc 0.7 0.6-1.3 TSH Reflex FT4 And/Or 09/25/2016 Thyroid Stim Hormone 0.87 uIU/mL 0.30- 4.20 28 FT3 Reflex add FT3? Y 28 Reflex add FT4? Y 28 CBS W/Automated Diff 09/25/2016 White Blood Count 10.8 K/uL High 3.1-10.7 28 Red Blood Count 4.47 M/uL 3.90-5.40 28 Hemoglobin 14.3 gm/dL 11.6-15.8 28 Hematocrit 42.6 % 36.0-46.1 28 Mean Cell Volume 95.3 fl 80.9-99.0 28 Mean Corpuscular HGB 32.0 pg 25.9-32.7 28 Mean Corpuscular HGB Conc 33.6 g/dL 30.8-34.3 28 Platelet Count 303 K/uL 155-360 28 Red Cell Distri Width SD 44.5 fl 3-47 28 Red Cell Distri Width %CV 13.2 % 11.7-14.4 28 Mean Platelet Volume 10.9 fL 8.9-12.4 28 Neut% 59.7 % 40.4-72.8 28 Lymph % 32.7 % 20.0-42.0 28 [place] % 6.4 % 4.3-13.2 28 Eo% 0.9 % 0.0-6.6 28 Bas% 0.3 % 0.0-1.1 28 Neut# 6.48 K/uL 1.8-7.0 28 Lymph # 3.54 K/uL 1.0-4.0 28 [place] # 0.69 K/uL 0.3-0.9 28 Eos # 0.10 K/uL 0.0-0.5 28 Baso # 0.03 K/uL 0.0-0.1 28 Comprehensive Metabolic Panel 09/25/2016 Glucose 78 mg/dL 74-106 28 BUN 8 mg/dL 7-18 28 Creatinine 0.8 mg/dL 0.6-1.3 28 Glom Filtration Rate, Estimate >60 mL/min >60 28 If >60 mL/min >60 28, 29 BUN/Creat 10.0 ratio 28 Sodium 142 mmol/L 136-145 28 Potassium 3.9 mmol/L 3.5-5.1 28 Chloride 107 mmol/L 98-107 28 Carbon Dioxide 28 mmol/L 21-32 28 Anion Gap 7 mEq/L Low 8-16 28 Calcium 8.7 mg/dL 8.5-10.1 28 Total Protein 7.0 g/dL 6.4-8.2 28 Albumin 3.7 g/dL 3.4-5.0 28 Globulin 3.3 g/dL 1.9-4.3 28 Alb/Glob 1.1 ratio 28 Bilirubin,Total 0.2 mg/dL 0.2-1.0 28 Sgot/Ast 16 U/L 15-37 28 SGPT/Alt 22 U/L 12-78 28 Alkaline Phosphatase 89 U/L 45-117 28 Reflex add FT3? Y 28 Reflex add FT4? Y 28 Laboratory test 09/25/2016 Vitamin D,25-Hydroxy 21.1 ng/mL Low 30.0-100.0 28, 30 finding Laboratory test 07/12/2016 Urine HCG NEGATIVE Negative 31, 32 finding (Qualitative) CBC Auto Diff 06/28/2016 White Blood Count 8.3 10^3/uL 3.5-10.8 Red Blood Count 4.67 10^6/uL 4.0-5.4 Hemoglobin 14.3 g/dL 12.0-16.0 Hematocrit 43 % 35-47 Mean Corpuscular Volume 91 fL 80-97 Mean Corpuscular Hemoglobin 31 pg 27-31 Mean Corpuscular HGB Conc 34 g/dL 31-36 Red Cell Distribution Width 14 % 10.5-15 Platelet Count 298 10^3/uL 150-450 Mean Platelet Volume 9 um3 7.4-10.4 Abs Neutrophils 4.3 10^3/uL 1.5-7.7 Abs Lymphocytes 3.1 10^3/uL 1.0-4.8 Abs Monocytes 0.6 10^3/uL 0-0.8 Abs Eosinophils 0.1 10^3/uL 0-0.6 Abs Basophils 0.1 10^3/uL 0-0.2 Abs Nucleated RBC 0 10^3/uL Granulocyte % 52.0 % 38-83 Lymphocyte % 37.6 % 25-47 Monocyte % 7.4 % 1-9 Eosinophil % 1.2 % 0-6 Basophil % 1.8 % 0-2 Nucleated Red Blood Cells % 0 Comp Metabolic Panel 06/28/2016 Sodium 138 mmol/L 133-145 Potassium 4.4 mmol/L 3.5-5.0 Chloride 104 mmol/L 101-111 Co2 Carbon Dioxide 29 mmol/L 22-32 Anion Gap 5 mmol/L 2-11 Glucose 82 mg/dL 70-100 Blood Urea Nitrogen 8 mg/dL 6-24 Creatinine 0.66 mg/dL 0.51-0.95 BUN/Creatinine Ratio 12.1 8-20 Calcium 9.2 mg/dL 8.6-10.3 Total Protein 6.3 g/dL Low 6.4-8.9 Albumin 3.8 g/dL 3.2-5.2 Globulin 2.5 g/dL 2-4 Albumin/Globulin Ratio 1.5 1-3 Total Bilirubin 0.30 mg/dL 0.2-1.0 Alkaline Phosphatase 63 U/L 34-104 Alt 15 U/L 7-52 Ast 14 U/L 13-39 Egfr Non- 107.4 >60 Egfr 138.2 >60 33 Laboratory test finding 06/28/2016 HCG < 0.60 mIU/mL 34 TSH (Thyroid Stimulating Horm) 0.70 mcIU/mL 0.34-5.60 Laboratory test finding 02/22/2015 Urine Culture See Note 35 CBC/Manual Differential 02/22/2015 White Blood Count 14.5 K/uL High 3.1- 10.7 Red Blood Count 4.30 M/uL 3.90-5.40 Hemoglobin 13.6 gm/dL 11.6-15.8 Hematocrit 41.1 % 36.0-46.1 Mean Cell Volume 95.6 fl 80.9-99.0 Mean Corpuscular HGB 31.6 pg 25.9-32.7 Mean Corpuscular HGB Conc 33.1 g/dL 30.8-34.3 Platelet Count 324 K/uL 155-360 Red Cell Distri Width %CV 13.1 % 11.7-14.4 Mean Platelet Volume 10.8 fL 8.9-12.4 Total Cells Counted 100 #CELLS Neutrophils% 75 % High 33-73 Lymph% 21 % 17-56 Platelet Estimate NORMAL Atypical Lymph% 1 % 0-7 Monocyte% 2 % 0-10 Eosinophil% 1 % 0-5 RBC Morphology NORMAL Basic Metabolic Panel 02/22/2015 Glucose 101 mg/dL 74-106 BUN 7 mg/dL 7-18 Creatinine 0.9 mg/dL 0.6-1.3 Glom Filtration Rate, Estimate >60 mL/min >60 If >60 mL/min >60 36 BUN/Creat 7.7 ratio Sodium 139 mmol/L 136-145 Potassium 3.9 mmol/L 3.5-5.1 Chloride 103 mmol/L 98-107 Carbon Dioxide 26 mmol/L 21-32 Anion Gap 10 mEq/L 8-16 Calcium 8.3 mg/dL Low 8.5-10.1 Liver Function Tests 02/22/2015 Total Protein 6.9 g/dL 6.4-8.2 Albumin 3.6 g/dL 3.4-5.0 Globulin 3.3 g/dL 1.9-4.3 Alb/Glob 1.1 ratio Bilirubin,Total 0.3 mg/dL 0.2-1.0 Bilirubin,Direct < 0.1 mg/dL 0.0-0.2 Bilirubin,Indirect 0.2 mg/dL 0.0-0.9 Sgot/Ast 12 U/L Low 15-37 37 SGPT/Alt 23 U/L 12-78 Alkaline Phosphatase 86 U/L 45-117 Laboratory test finding 02/22/2015 Amylase 40 U/L 25-115 Lipase 83 U/L 73-393 Laboratory test 02/21/2015 Urine Culture SEE RESULT BELOW 38 finding Laboratory test 01/24/2015 Thyroid Stim 0.88 uIU/mL 0.36-3.74 finding Hormone Basic Metabolic Panel 01/24/2015 Glucose 88 mg/dL 74-106 BUN 8 mg/dL 7-18 Creatinine 0.9 mg/dL 0.6-1.3 Glom Filtration Rate, Estimate >60 mL/min >60 If >60 mL/min >60 39 BUN/Creat 8.8 ratio Sodium 140 mmol/L 136-145 Potassium 3.8 mmol/L 3.5-5.1 Chloride 104 mmol/L 98-107 Carbon Dioxide 27 mmol/L 21-32 Anion Gap 9 mEq/L 8-16 Calcium 8.7 mg/dL 8.5-10.1 CBS W/Automated Diff 01/24/2015 White Blood Count 8.9 K/uL 3.1-10.7 Red Blood Count 4.55 M/uL 3.90-5.40 Hemoglobin 13.9 gm/dL 11.6-15.8 Hematocrit 42.7 % 36.0-46.1 Mean Cell Volume 93.8 fl 80.9-99.0 Mean Corpuscular HGB 30.5 pg 25.9-32.7 Mean Corpuscular HGB Conc 32.6 g/dL 30.8-34.3 Platelet Count 295 K/uL 155-360 Red Cell Distri Width SD 44.4 fl 3-47 Red Cell Distri Width %CV 13.3 % 11.7-14.4 Mean Platelet Volume 10.8 fL 8.9-12.4 Neut% 54.6 % 40.4-72.8 Lymph % 36.7 % 17.0-46.1 [place] % 7.3 % 4.3-13.2 Eo% 1.2 % 0.0-6.6 Bas% 0.2 % 0.0-1.1 Neut# 4.87 K/uL 1.0-7.0 Lymph # 3.28 K/uL 1.8-7.0 [place] # 0.65 K/uL 0.3-0.9 Eos # 0.11 K/uL 0.0-0.5 Baso # 0.02 K/uL 0.0-0.1 Chlamydia/GC Noemy 01/24/2015 Chlamydia Trachomatis, Noemy Negative Negative Neisseria Gonorrhoeae, Noemy Negative Negative Please note: See Note 40 Chlamydia/GC Noemy 07/14/2013 Chlamydia Trachomatis, Noemy Negative Negative Neisseria Gonorrhoeae, Noemy Negative Negative Please note: See Note 41 Laboratory test finding 07/14/2013 Vaginal Strep Screen See Note 42 Affirm 06/04/2013 Neela Negative 43 Gardnerella Negative Trichomonas Negative Laboratory test finding 06/09/2012 ThinPrep Pap: See Note 44 Cervix/Endocx Laboratory test finding 06/26/2010 Gallbladder See Note 45 Liver Function Tests 06/25/2010 Total Protein 6.2 g/dL Low 6.3-8.0 Albumin 2.9 g/dL Low 3.5-5.0 Bilirubin,Total 3.1 mg/dL High 0.2-1.2 Bilirubin,Direct 2.0 mg/dL High 0.1-0.4 Bilirubin,Indirect 1.1 mg/dL High 0.0-0.9 Sgot/Ast 34 U/L 16-40 SGPT/Alt 139 U/L High 30-65 Alkaline Phosphatase 225 U/L High 50-136 Globulin 3.3 gm/dL 1.9-4.3 Alb/Glob 0.9 Laboratory test finding 06/25/2010 Amylase 82 U/L 18-98 46 CBS W/Automated Diff 06/25/2010 White Blood Count 4.9 K/uL 3.1-10.7 Red Blood Count 3.88 M/uL Low 3.90-5.40 Hemoglobin 11.7 gm/dL 11.6-15.8 Hematocrit 36.3 % 36.0-46.1 Mean Cell Volume 93.6 fl 80.9-99.0 Mean Corpuscular HGB 30.2 pg 25.9-32.7 Mean Corpuscular HGB Conc 32.2 g/dL 30.8-34.3 Platelet Count 267 K/uL 155-360 Red Cell Distri Width %CV 13.2 % 11.7-14.4 Mean Platelet Volume 10.4 fL 8.9-12.4 Neut% 43.8 % 40.4-72.8 Lymph % 43.6 % 17.0-46.1 [place] % 10.0 % 4.3-13.2 Eo% 2.2 % 0.0-6.6 Bas% 0.4 % 0.0-1.1 Neut# 2.1 K/uL 1.0-7.0 Lymph # 2.1 K/uL 0.8-3.4 [place] # 0.5 K/uL 0.3-0.9 Eos # 0.1 K/uL 0.0-0.5 Baso # 0.0 K/uL 0.0-0.1 Red Cell Distri Width SD 44.1 fl 3-47 Laboratory test finding 06/23/2010 Act Partial Thrombo 26.9 seconds 23.4- 37.4 47 Time Protime 06/23/2010 Protime 13.0 seconds 11.7-15.1 Inr 1.0 0.8-1.2 48 1 N39.0 2 MIXED URETHRAL GLORIA 3 50,000 - 100,000 CFU/mL 4 R10.33 R30.0 5 Note: Persistent reduction for 3 months or more in an eGFR <60 mL/min/1.73 m2 defines CKD. Patients with eGFR values >/=60 mL/min/1.73 m2 may also have CKD if evidence of persistent proteinuria is present. The original MDRD equation for estimated GFR is not valid for patients less than 18 years of age. Additional information may be found at www.kdoqi.org. 6 ESCHERICHIA COLI 7 > 100,000 CFU/mL 8 10,000 - 50,000 CFU/mL 9 R30.0 10 MIXED URETHRAL GLORIA 11 50,000 - 100,000 CFU/mL 12 M79.1 13 Method: Sediplast Modified Westergren 14 Note: Persistent reduction for 3 months or more in an eGFR <60 mL/min/1.73 m2 defines CKD. Patients with eGFR values >/=60 mL/min/1.73 m2 may also have CKD if evidence of persistent proteinuria is present. The original MDRD equation for estimated GFR is not valid for patients less than 18 years of age. Additional information may be found at www.kdoqi.org. 15 Negative <20 Weak positive 20 - 39 Moderate positive 40 - 59 Strong positive >59 16 Performed at: - [facility] [id number] Bariatric Program Coordinator: Chapis Veras MD, Phone: [phone] Performed at: - [facility] [address] [id number] Bariatric Program Coordinator: Sherri Sampson MD, Phone: [phone] 17 ABD AND BACK PAIN 18 Note: Persistent reduction for 3 months or more in an eGFR <60 mL/min/1.73 m2 defines CKD. Patients with eGFR values >/=60 mL/min/1.73 m2 may also have CKD if evidence of persistent proteinuria is present. The original MDRD equation for estimated GFR is not valid for patients less than 18 years of age. Additional information may be found at www.kdoqi.org. 19 Values below the stated reference ranges of AST and ALT can be seen in normal populations. Clinical correlation is suggested. 20 FIRST MORNING SPECIMENS GENERALLY CONTAIN THE HIGHEST CONCENTRATION OF HCG AND ARE RECOMMENDED FOR EARLY DETECTION OF . Method: Quidel QuickVue One-Step Immunoassay 21 URINE, CLEAN CATCH 22 URINE, CLEAN CATCH 23 CULTURE TO FOLLOW 24 URINE, CLEAN CATCH 25 04/08/17 0709: NEUT% previously reported as: 72.1 % Amended result called to: [] - 04/08/17 at 70804/08/17 0709: LYMPH % previously reported as: 20.6 % Amended result called to: [] - 04/08/17 at 70804/08/17 0709: MONO % previously reported as: 6.4 % Amended result called to: [] - 04/08/17 at 70804/08/17 0709: EO% previously reported as: 0.7 % Amended result called to: [] - 04/08/17 at 70804/08/17 0709: BAS% previously reported as: 0.2 % Amended result called to: [] - 04/08/17 at 0709 26 ESCHERICHIA COLI 27 > 100,000 CFU/mL 28 F34.81 29 Note: Persistent reduction for 3 months or more in an eGFR <60 mL/min/1.73 m2 defines CKD. Patients with eGFR values >/=60 mL/min/1.73 m2 may also have CKD if evidence of persistent proteinuria is present. The original MDRD equation for estimated GFR is not valid for patients less than 18 years of age. Additional information may be found at www.kdoqi.org. 30 Vitamin D deficiency has been defined by the [place] [employer] and an Endocrine Society practice guideline as a level of serum 25-OH vitamin D less than 20 ng/mL (1,2). The Endocrine Society went on to further define vitamin D insufficiency as a level between 21 and 29 ng/mL (2). 1. IOM ([place] [employer]). 2010. Dietary reference intakes for calcium and D. [place]: The National Academies Press. 2. Nathalie MF, Hans BECK, Claudia ARCE, et al. Evaluation, treatment, and prevention of vitamin D deficiency: an Endocrine Society clinical practice guideline. JCEM. 2011 Mar; 96(7):0401-30. Performed at: RN - [facility] [address] [id number] Bariatric Program Coordinator: Sherri Sampson MD, Phone: [phone] 31 CONSULT 07/10 76196 F07.373 32 FIRST MORNING SPECIMENS GENERALLY CONTAIN THE HIGHEST CONCENTRATION OF HCG AND ARE RECOMMENDED FOR EARLY DETECTION OF . 33 Because ethnic data is not always readily available, this report includes an eGFR for both -Americans and non- Americans. The National Kidney Disease Education Program (NKDEP) does not endorse the use of the MDRD equation for patients that are not between the ages of 18 and 70, are , have extremes of body size, muscle mass, or nutritional status, or are non- or non-. According to the National Kidney Foundation, irrespective of diagnosis, the stage of the disease is based on the level of kidney function: Stage Description GFR(mL/min/1.73 m(2)) 1 Kidney damage with normal or decreased GFR 90 2 Kidney damage with mild decrease in GFR 60-89 3 Moderate decrease in GFR 30-59 4 Severe decrease in GFR 15-29 5 Kidney failure <15 (or dialysis) 34 <5.0 Negative 5.0 - 25.0 Indeterminate (Repeat testing recommended after 72 hours) >25.0 Positive Perimenopausal women can display HCG levels of up to 20 mIU/mL 35 Organism 1 ! ESCHERICHIA COLI Quantity ! > 100,000 CFU/mL Organism 2 ! MIXED URETHRAL GLORIA Quantity ! > 100,000 CFU/mL ESCHERICHIA COLI Target Route Dose M.I.C. RX AB COST ------ ----- -------- ------ -- ------ NITROFURANTOIN 64 I TRIMETHOPRIM/SULFAMETHOXAZOLE >=320 R AMPICILLIN >=32 R CEFAZOLIN <=4 S AMPICILLIN/SULBACTAM >=32 R CIPROFLOXACIN <=0.25 S PIPERACILLIN/TAZOBACTAM <=4 S CEFTAZIDIME <=1 S CEFTRIAXONE <=1 S CEFEPIME <=1 S LEVOFLOXACIN <=0.12 S IMIPENEM <=0.25 S GENTAMICIN BLOOD IV 80 mg >=16 R 2.63 TOBRAMYCIN BLOOD IV 80 mg 2 S 1.56 36 Note: Persistent reduction for 3 months or more in an eGFR <60 mL/min/1.73 m2 defines CKD. Patients with eGFR values >/=60 mL/min/1.73 m2 may also have CKD if evidence of persistent proteinuria is present. The original MDRD equation for estimated GFR is not valid for patients less than 18 years of age. Additional information may be found at www.kdoqi.org. 37 Values below the stated reference ranges of AST and ALT can be seen in normal populations. Clinical correlation is suggested. 38 SEE RESULT BELOW Name: STEVEN SOLORIO : [address]: Melvi Rice MD Acct: [id number] Unit: [id number] AGE: 24 Location: [facility] Re02/21/15 SEX: F Status: DEP ER SPEC: [id number] TOMAS: 02/21/15-2102 [facility] DR: Melvi Rice MD REQ: [id number] RECD: 02/22/15615 STATUS: LORIE RAMIREZ DR: [facility] Jessica Pugh MD _ SOURCE: URINE SPDESC: ORDERED: Urine Culture Procedure Result Verified Site Urine Culture Final 02/24/15- 826 ML Organism 1 ESCHERICHIA COLI [place] Count 75-100,000 (Many) CFU/ML Organism 2 NORMAL GLORIA [place] Count 50-75,000 (Many) CFU/ML 1. ESCHERICHIA COLI M.I.C. RX --------- ------ Ampicillin >=32 R Cefazolin <=4 S Cefepime <=1 S Ceftriaxone <=1 S Ciprofloxacin <=0.25 S Gentamicin >=16 R Levofloxacin <=0.12 S Meropenem <=0.25 S Nitrofurantoin 32 S Tetracycline <=1 S Pipercillin/Tazobactam <=4 S Trimethoprim/Sulfamethoxazole >=320 R Amoxicillin/Clavulanic Acid 8 S Aztreonam <=1 S Contact the Microbiology Department for any additional antibiotic reporting. * ML - MAIN LAB ([facility]) . END OF REPORT * ML=Testing performed at Main Lab DEPARTMENT OF PATHOLOGY, [address] [place] [address] Zacarias Witt M.D. Director [facility] # [id number] Note: Persistent reduction for 3 months or more in an eGFR <60 mL/min/1.73 m2 defines CKD. Patients with eGFR values >/=60 mL/min/1.73 m2 may also have CKD if evidence of persistent proteinuria is present. The original MDRD equation for estimated GFR is not valid for patients less than 18 years of age. Additional information may be found at www.kdoqi.org. 40 Acceptable specimens for this test are male urethral swab, endocervical swab and liquid based pap specimens, vaginal swabs in [employer]TIM[employer] transports and first void urine. See online Directory of Services for test number for rectal and pharyngeal specimens. Performed at: [facility] [address] [id number] Bariatric Program Coordinator: Sherri Sampson MD, Phone: [phone] Acceptable specimens for this test are male urethral swab, endocervical swab and liquid based pap specimens, vaginal swabs in [employer]TIM[employer] transports and first void urine. See online Directory of Services for test number for rectal and pharyngeal specimens. Performed at: [facility] [address] [id number] Bariatric Program Coordinator: Sherri Sampson MD, Phone: [phone] NO GROUP B STREPTOCOCCI ISOLATED 43 [facility] [address] [place] [address], [address] [place] [address] AFFIRM VAGINOSIS / VAGINITIS REPORT Name: Steven Solorio : 1990 (Age: 23) Sex: F Location: [facility] Med Rec. 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 N Post ? N Menopause? N LMP date: If patient had related surgical procedure: Related Therapy: Significant Clinical History: ANNUAL MISCARRAGE ===== DISCLAIMER: The Pap smear is a screening test and not a diagnostic procedure. False negative and false positive results can and do occur for a number of reasons. Regular screening provides an aid in detecting treatable cervical abnormalities, but should not be used as the only means for detecting cervical dysplasia and carcinoma. ----- ANASTASIYA Wesley 06/11/12 1153 ----- 45 OPERATION/PROCEDURE Laparoscopic cholecystectomy DIAGNOSIS: "GALLBLADDER": CHRONIC CHOLECYSTITIS, AND CHOLELITHIASIS. SOME ACUTE INFLAMMATION. NO DYSPLASIA NOR NEOPLASIA APPRECIATED. Ashish 1054 GROSS The specimen is received in a single container additionally labeled "GALLBLADDER". This contains a grossly recognizable unopened gallbladder. This has a purple green shiny smooth surface and overall measures 7.6 x 3.0 x 2.8 cm. in overall dimensions. There is not a visible wall defect. The wall has a uniform thickness of 0.2-0.4 cm. The mucosal surface is green black, velvety smooth and unremarkable. There are trabeculations noted. No fox reticular discoloration of cholesterolosis is noted. Approximately fifty stones are noted with a diameter up to 0.4 cm. They do not obstruct the neck Fingerer sections are submitted within a single cassette. WS/yaron MICROSCOPIC Sections show gallbladder mucosa lined by columnar epithelium with focal synechia, and Rokitansky-Aschoff sinus formation. The submucosa has a mild infiltrate of lymphocytes and plasma cells. The muscular wall is slightly fibrotic and hypertrophied. An incidental microscopic papillary growth is noted; it is of no clinical consequence. PRE OPERATIVE DIAGNOSIS Acute cholecystitis REVIEW CODE CODE: I CHAPIS Cartwright MD 06/27/10 46 QUERY: @[employer] Pat ID: QUERY: @EMR Req #: 47 Is patient on heparin protocol? N Is patient on anticoagulants? None QUERY: @EMR Pat ID: QUERY: @EMR Req #: QUERY: Anticoagulant Therapy? QUERY: Date of Last Dose: QUERY: Time of Last Dose: 48 THERAPEUTIC INR RANGE: 2.0 - 3.0 DVT, Pulmonary embolus, prophylaxis against venous thrombosis or systemic embolization in high risk patients. 2.5 - 3.5 Mechanical heart valves Procedures Date CPT Code Description Status 04/29/2018 33468 Theraputic Or Diagnostic Injection Completed 12/23/2017 61442 Eye Exam Est Patient Comprehensive Completed 05/27/201756026 Injection Single Or Multiple Trigger Points Three Or Completed More Muscles 03/19/2017 60566 Asp./Injection major joint Completed 02/26/2017 25362 Radiology, Knee 3 Views Completed 02/26/2017 02066 Radiology, Knee 3 Views Completed 02/26/2017 13373 Radiology, L-S Spine 2 Or 3 Views Completed 02/26/2017 44713 Radiology, L-S Spine 2 Or 3 Views Completed 07/12/2016 75566 Arthroscopy synovectomy limited (separate procedure) Completed 01/22/2016 33826 Radiology, Knee 3 Views Completed 01/22/2016 61832 Radiology, Knee 3 Views Completed 01/11/2016 58979 Gonioscopy Completed 01/11/2016 67698 Eye Exam New Patient Comprehensive Completed 02/07/2015 92151 Removal Of Contraceptive Completed 08/23/2013 05401 Insertion, Non-Biodegradable Drug Delivery Implant Completed 07/26/2013 49438 Anesthesia, Delivery Completed 07/26/2013 57578 Repeat F/-Delivery Only Completed 07/21/2013 36328 Antepartum 7 Or More Total Office Visit Completed 07/14/2013 26745 Antepartum 7 Or More Total Office Visit Completed 06/23/2013 21043 Antepartum 7 Or More Total Office Visit Completed 06/09/2013 87295 Antepartum 7 Or More Total Office Visit Completed 05/27/2013 14037 Antepartum 7 Or More Total Office Visit Completed 05/05/2013 77226 Antepartum 7 Or More Total Office Visit Completed 04/01/2013 56010 Antepartum 7 Or More Total Office Visit Completed 03/01/2013 24972 Antepartum 7 Or More Total Office Visit Completed 01/26/2013 48649 Antepartum 7 Or More Total Office Visit Completed 12/23/2012 24431 Antepartum 7 Or More Total Office Visit Completed 06/13/2011 89507 MRI Spine Lumbar W/O Contrast Completed 06/26/2010 58068 Laparoscopy; cholecystectomy Completed 06/23/2010 32572 Anesthesia, Upper GI Endoscopic Surgery Completed Encounters Type Date Location Provider CPT E/M Dx Office Visit 04/29/2018 10:00a Family Medicine Opal Chery PNP-, 84788 M25.552 PRINTMAKER, Ibclc Office Visit 02/23/2018 3:00p Family Medicine Opal Chery PNP-BC, 75759 N39.0 PRINTMAKER, Ibclc Office Visit 11/12/2017 10:00a Family Medicine Candis Durham M.D. 22076 M50.021 M62.838 R30.0 R10.33 Office Visit 09/09/2017 3:00p Family Medicine Candis Durham M.D. 04510 R30.0 Office Visit 08/12/2017 11:00a [place] [address] F33.1 F41.9 R10.84 Office Visit 07/23/2017 9:15a Physical [place] [address] M50.021 Infectious Disease M54.2 M25.511 G56.01 Office Visit 07/18/2017 9:00a Physical Medicine [place] [address] M54.2 Infectious Disease M25.511 M79.1 G56.01 Office Visit 07/11/2017 10:30a Family Medicine Candis Durham M.D. 90369 M79.1 M25.50 Office Visit 07/09/2017 1:45p [place] [address] F33.1 F41.9 M79.1 F17.210 G47.9 Office Visit 06/25/2017 9:30a Physical Nancy & [place] [address] M54.5 Infectious Disease M79.1 Office Visit 05/15/2017 1:15p Orthopaedic Office Jayce Rodriguez M.D. 48066 M22.42 Office Visit 05/14/2017 10:30[place] [address] M54.5 Infectious Disease M79.1 Office Visit 04/11/2017 9:30a [place] [address] M25.562 Infectious Disease M54.5 M79.1 Office Visit 04/10/2017 1:30p Orthopaedic Office Jayce Rodriguez M.D. 25430 M22.42 M25.562 Office Visit 03/19/2017 3:15p Orthopaedic Office Barbara Friedman, 38816 M25.562 RPA M22.42 Office Visit 02/26/2017 1:15p Orthopaedic Office Barbara Friedman, 16225 M25.562 RPA M54.5 M22.42 Office Visit 02/19/2017 10:15a Family Candis Briggs M.D. 79516 J20.9 Office Visit 02/12/2017 10:15a Family Medicine Candis Durham M.D. 29890 J45.901 F17.210 Office Visit 01/23/2017 1:15p Family Medicine Candis Durham M.D. 42056 S61.411A Office Visit 11/20/2016 3:00p Family Candis Briggs M.D. 60364 J02.9 Office Visit 09/25/2016 11:45a Family Candis Briggs M.D. 92303 F17.210 F34.81 Z23 Office Visit 06/21/2016 10:30a Family Medicine Candis Durham M.D. 27750 J20.9 Z23 Office Visit 06/19/2016 10:00a Orthopaedic Office Jayce Rodriguez M.D. 59175 M25.562 M67.462 Office Visit 06/05/2016 9:45a Orthopaedic Office Barbara Friedman, 77134 M25.562 RPA Office Visit 05/24/2016 11:15a Family Medicine Kaia Zambrano, 60061 J01.90 PRINTMAKER-C Office Visit 04/24/2016 10:45a Orthopaedic Office Barbara Friedman, 35921 M25.562 RPA Office Visit 03/11/2016 3:15p Orthopaedic Office Barbara Friedman, 08766 M25.562 RPA Office Visit 01/22/2016 11:00a Orthopaedic Office Barbara Friedman, 58618 M25.562 RPAC Office Visit 01/17/2016 1:45p Family Candis Briggs M.D. 23718 M25.561 Office Visit 12/21/2015 9:00a Family Candis Briggs M.D. 10050 G43.009 Office Visit 12/07/2015 9:45a Family Medicine Candis Durham M.D. 31395 G43.009 R05 F17.210 Z71.6 Office Visit 08/17/2015 11:30a [facility] Candis Briggs M.D. 86801 Z23 M25.532 Office Visit 07/19/2015 10:30a [facility] Candis Briggs M.D. 79842 M25.532 Office Visit 02/22/2015 2:45p [place] [address] 789.06 Office Visit 02/07/2015 4:30p [place] [address] V25.09 V15.82 Office Visit 01/24/2015 1:45p [place] [address] V70.0 V72.31 V25.09 V15.82 305.1 Plan of Care 04/29/2018 - Opal Chery, PNP-BC, PRINTMAKER, WqerwM72.552 Pain in left hipNew Medication:Cyclobenzaprine HCL 10 mgKetorolac Tromethamine 10 mgComments:if no improvement in a week call me and we'll get you set up with PT assuming all the radiology tests are normal.
== END 2018-05-20 09:13 | disposition home or self-care (01) ==
LOC: UCCORT 08:44
DX: J45.901 Unspecified asthma with (acute) exacerbation (principal); Z88.5 Allergy status to narcotic agent; Z88.4 Allergy status to anesthetic agent; F17.210 Nicotine dependence, cigarettes, uncomplicated
CPT/HCPCS: 99212; G0463

== ENCOUNTER 2018-08-01 17:04 | Emergency (ER) | payer OTHER ==
--- NOTE | 2018-08-01 17:41 | UC ---
Back Pain HPI - HPI Summary HPI Summary: Patient is a 28-year-old female with a 3 week history of right flank pain. About a week ago she had gross hematuria. She states that the pain got markedly worse the past 48 hours. She denies any fever or chills. She denies any vaginal discharge or itching. - History of Current Complaint Chief Complaint: UCBackPain Stated Complaint: LOWER BACK PAIN Time Seen by Provider: 08/01/18 17:17 Hx Obtained From: Patient Hx Last Menstrual Period: 07/04/18 Onset/Duration: Gradual Onset, Lasting Days, Worse Since - 2 days Timing: Constant Severity Initially: Mild Severity Currently: Moderate Pain Intensity: 7 Pain Scale Used: 0-10 Numeric Back Pain: Is Diffuse Character: Aching, Spasmodic Aggravating Factor(s): Nothing Alleviating Factor(s): Nothing Associated Signs And Symptoms: Positive: Flank Pain. Negative: Swelling, Redness, Bruising, Fever, Weakness, Numbness, Tingling, Abdominal Pain, Bladder Incontinence, Bowel Incontinence, Weight Loss, Pain with Weight Bearing - Allergies/Home Medications Allergies/Adverse Reactions: Allergies Allergy/AdvReac Type Severity Reaction Status Date / Time codeine Allergy Abdominal Verified 05/20/18 08:59 Pain hydrocodone Allergy Abdominal Verified 05/20/18 08:59 Pain ketorolac Allergy Abdominal Verified 05/20/18 08:59 Pain and Headache oxycodone Allergy Abdominal Verified 05/20/18 08:59 Pain NARCOTICS Allergy Unknown HEADCHES Uncoded 08/01/18 17:18 AND ABDOMINAL PAIN PMH/Surg Hx/FS Hx/Imm Hx Previously Healthy: Yes GI/ History: Ulcer, Kidney Stones - Surgical History Surgical History: Yes Surgery Procedure, Year, and Place: Appy 2006. C section x 2. cholecystectomy WITH PART OF PANCREASE REMOVE. KNEE SURGERY - Family History Known Family History: Positive: Hypertension, Respiratory Disease - Social History Alcohol Use: Rare Substance Use Type: None Smoking Status (MU): Light Every Day Tobacco Smoker Type: Cigarettes Amount Used/How Often: 1 PPD Length of Time of Smoking/Using Tobacco: since age 18 Have You Smoked in the Last Year: Yes Household Exposure Type: Cigarettes Review of Systems All Other Systems Reviewed And Are Negative: Yes Constitutional: Positive: Negative Skin: Positive: Negative Eyes: Positive: Negative ENT: Positive: Negative Respiratory: Positive: Negative Cardiovascular: Positive: Negative Gastrointestinal: Positive: Other - right flank pain Genitourinary: Positive: Hematuria Motor: Positive: Negative Neurovascular: Positive: Negative Musculoskeletal: Positive: Negative Neurological: Positive: Negative Psychological: Positive: Negative Physical Exam Triage Information Reviewed: Yes Appearance: Well-Appearing, Well-Nourished, Pain Distress - pacing room Vital Signs: Initial Vital Signs Temp 97.6 F 08/01/18 17:19 Pulse 95 08/01/18 17:19 Resp 20 08/01/18 17:19 BP 128/65 08/01/18 17:19 Pulse Ox 100 08/01/18 17:19 Vital Signs Reviewed: Yes Eyes: Positive: Conjunctiva Clear ENT: Positive: Hearing grossly normal. Negative: Nasal congestion, Nasal drainage, Trismus, Muffled voice, Hoarse voice Neck: Positive: Supple, Nontender, No Lymphadenopathy Respiratory: Positive: Lungs clear, Normal breath sounds, No respiratory distress Cardiovascular: Positive: RRR, No Murmur Abdomen Description: Positive: Nontender, Soft, CVA Tenderness (R). Negative: Bruit, Distended Bowel Sounds: Positive: Present Musculoskeletal: Positive: ROM Intact, No Edema Neurological: Positive: Alert Psychological Exam: Normal Skin Exam: Normal Diagnostics - Laboratory Diagnostic Studies Completed/Ordered: UA (-) - Radiology No standard instances Radiology Interpretation Completed By: Radiologist Summary of Radiographic Findings: No evidence of renal calculi or obstructive uropathy. There is mild bladder wall thickening suggestive of cystitis Back Pain Course/Dx - Course Course Of Treatment: Right flank pain of uncertain cause - Differential Dx/Diagnosis Provider Diagnosis: Flank pain, Bladder wall thickening Discharge - Sign-Out/Discharge Documenting (check all that apply): Patient Departure All imaging exams completed and their final reports reviewed: Yes - Discharge Plan Condition: Stable Disposition: HOME Prescriptions: Cyclobenzaprine TAB* [Flexeril TAB*] 10 mg PO TID PRN #21 tab PRN Reason: Spasms Patient Education Materials: Hematuria (ED), Flank Pain (ED) Referrals: Donna Pinto MD [Medical Doctor] - 2 Weeks (He also has an office in [place] ) Additional Instructions: Because of your hematuria (blood in urine) and bladder wall thickening I suggest you see a urologist tylenol you can try aleve 1-2 twice daily for pain if it upsets your stomach stop - Billing Disposition and Condition Condition: STABLE Disposition: Home
[2018-08-01] MEDS ORDERED: Acetaminophen TAB* 325 MG PO ONE (18:37)
[2018-08-01] MEDS ORDERED: Cyclobenzaprine TAB* 10 MG PO ONE ×2 (18:37→19:07)
[2018-08-01 19:58] VITALS: BP 126/66
== END 2018-08-01 19:25 | disposition home or self-care (01) ==
LOC: UCCORT 17:04
DX: R10.9 Unspecified abdominal pain (principal); N32.89 Other specified disorders of bladder; Z88.5 Allergy status to narcotic agent; Z88.6 Allergy status to analgesic agent; F17.210 Nicotine dependence, cigarettes, uncomplicated
CPT/HCPCS: 74176; 81003; 84702; 87086; 99213; A9270-GY; G0463

== ENCOUNTER 2019-11-02 10:57 | Emergency (ER) | payer OTHER ==
[2019-11-02 11:15] VITALS: BP 119/57
--- NOTE | 2019-11-02 11:55 | UC ---
Abdominal Pain Female HPI - HPI Summary HPI Summary: RUQ abdominal pain x 5 weeks pain is moderated 5 out 10 , no radiation , worse with eating, better NPO , no fever, no chills, + nausea , no vomiting , no diarrhea, no urinary symptoms has been having right mid back pain x 2 days, pain is 7 out of 10 , worse with movements better by lying down - History of Current Complaint Chief Complaint: UCGeneralIllness Stated Complaint: STOMACH/RIGHT BACK PAIN Time Seen by Provider: 11/02/19 11:06 Hx Obtained From: Patient Hx Last Menstrual Period: 07/04/18 ?: No Onset/Duration: Gradual Onset, Lasting Weeks - 5, Still Present Timing: Constant Severity Initially: Moderate Severity Currently: Moderate Pain Intensity: 6 Pain Scale Used: 0-10 Numeric Location: Discrete At: RUQ Radiates: No Character: Aching Aggravating Factor(s): Food Alleviating Factor(s): NPO Associated Signs and Symptoms: Positive: Back Pain, Nausea. Negative: Fever, Chest Pain, Constipation, Blood in Stool, Urinary Symptoms, Decreased Appetite, Vaginal Bleeding, Vaginal Discharge, Vomiting, Diarrhea Allergies/Adverse Reactions: Allergies Allergy/AdvReac Type Severity Reaction Status Date / Time codeine Allergy Abdominal Verified 11/02/19 11:15 Pain hydrocodone Allergy Abdominal Verified 11/02/19 11:15 Pain ketorolac Allergy Abdominal Verified 11/02/19 11:15 Pain and Headache oxycodone Allergy Abdominal Verified 11/02/19 11:15 Pain NARCOTICS Allergy Unknown HEADCHES Uncoded 11/02/19 11:15 AND ABDOMINAL PAIN Home Medications: Home Medications Albuterol HFA INHALER* [Ventolin HFA Inhaler*] 2 puff INH Q4H PRN #1 mdi [Rx Confirmed 11/02/19] Cyclobenzaprine TAB* [Flexeril 10 MG TAB*] 10 mg PO BID PRN #20 tab 11/02/19 [Rx ] Naproxen [Naproxen 500 mg tab] 500 mg PO BID #20 tablet. 11/02/19 [Rx] buPROPion TAB* [Wellbutrin TAB*] 100 mg PO DAILY 11/02/19 [History Confirmed 11/18] PMH/Surg Hx/FS Hx/Imm Hx - Additional Past Medical History Additional PMH: cholecystectomy WITH PART OF PANCREASE REMOVE-2009 - Surgical History Surgical History: Yes Surgery Procedure, Year, and Place: Appy 2006. C section x 2. Left knee surgery. cholecystectomy WITH PART OF PANCREASE REMOVE-2009. KNEE SURGERY - Family History Known Family History: Positive: Hypertension, Respiratory Disease - Social History Alcohol Use: Rare Substance Use Type: None Smoking Status (MU): Light Every Day Tobacco Smoker Type: Cigarettes Amount Used/How Often: 1 PPD Length of Time of Smoking/Using Tobacco: since age 18 Have You Smoked in the Last Year: Yes Household Exposure Type: Cigarettes Review of Systems All Other Systems Reviewed And Are Negative: Yes Is Patient Immunocompromised?: No Physical Exam Triage Information Reviewed: Yes Appearance: Pain Distress, Obese Vital Signs: Initial Vital Signs Temp 99.3 F 11/02/19 11:07 Pulse 81 11/02/19 11:07 Resp 18 11/02/19 11:07 BP 119/57 11/02/19 11:07 Pulse Ox 100 11/02/19 11:07 Vital Signs Reviewed: Yes Eye Exam: Normal Eyes: Positive: Conjunctiva Clear ENT: Positive: Normal ENT inspection, Hearing grossly normal, Pharynx normal Neck: Positive: Supple, Nontender, No Lymphadenopathy Respiratory: Positive: Chest non-tender, Lungs clear, Normal breath sounds Cardiovascular Exam: Normal Cardiovascular: Positive: RRR, No Murmur, Pulses Normal Abdomen Description: Positive: Soft, Other: - RUQ tenderness. Negative: CVA Tenderness (R), CVA Tenderness (L), Distended, Guarding Bowel Sounds: Positive: Present Musculoskeletal Exam: Normal Neurological Exam: Normal UC Physical Exam Vital Signs On Initial Exam: Initial Vitals Temp Pulse Resp BP Pulse Ox 99.3 F 81 18 119/57 100 11/02/19 11:07 11/02/19 11:07 11/02/19 11:07 11/02/19 11:07 11/02/19 11:07 - Back Exam Back Exam: normal inspection, Focal Tenderness @ - none SLR: Negative Abd Pain Female Course/Dx - Differential Dx/Diagnosis Provider Diagnosis: RUQ abdominal pain, Mid back pain on right side Discharge ED - Sign-Out/Discharge Documenting (check all that apply): Patient Departure All imaging exams completed and their final reports reviewed: No Studies - Discharge Plan Condition: Stable Disposition: HOME Prescriptions: Cyclobenzaprine TAB* [Flexeril 10 MG TAB*] 10 mg PO BID PRN #20 tab PRN Reason: Pain - Moderate Naproxen [Naproxen 500 mg tab] 500 mg PO BID #20 tablet. Patient Education Materials: Acute Abdominal Pain (ED), Back Pain (ED) Referrals: Kim Mayo MD [Primary Care Provider] - 7 Days Additional Instructions: will check CBC, CMP , Amylase and Lipase please call the office tomorrow for your lab results - Billing Disposition and Condition Condition: STABLE Disposition: Home
[2019-11-02 14:31] LABS: ABS Eosinophils 0.1 10^3/ul (0-0.6); ABS Lymphocytes 2.6 10^3/ul (1.0-4.8); ABS Monocytes 0.4 10^3/ul (0-0.8); ABS Neutrophils 4.5 10^3/ul (1.5-7.7); Eosinophil % 0.8 %; Hematocrit 43 % (35-47); Hemoglobin 14.8 g/dL (12.0-16.0); Lymphocyte % 34.4 %; Mean Corpuscular HGB Conc 34 g/dL (31-36); Mean Corpuscular Hemoglobin 31 pg (27-31); Mean Corpuscular Volume 91 fL (80-97); Mean Platelet Volume 8.5 fL (7.4-10.4); Nucleated Red Blood Cells % 0.1; Platelet Count 299 10^3/uL (150-450); Red Cell Distribution Width 14 % (10-15); White Blood Count 7.6 10^3/uL (3.5-10.8)
[2019-11-02 14:42] LABS: Albumin 4.4 g/dL (3.2-5.2); Calcium 9.7 mg/dL (8.6-10.3); Potassium 4.3 mmol/L (3.5-5.0); Total Bilirubin 0.3 mg/dL (0.2-1.0)
[2019-11-02 14:48] LABS: Albumin/Globulin Ratio 1.9 (1-3); EGFR African American 113.3 (>60); EGFR Non-African American 93.6 (>60); Globulin 2.3 g/dL (2-4); Total Protein 6.7 g/dL (6.4-8.9)
== END 2019-11-02 11:46 | disposition home or self-care (01) ==
LOC: UCCORT 10:57
DX: R10.11 Right upper quadrant pain (principal); M54.89 Other dorsalgia; F17.210 Nicotine dependence, cigarettes, uncomplicated; E66.9 Obesity, unspecified; Z88.5 Allergy status to narcotic agent; Z88.6 Allergy status to analgesic agent; Z90.49 Acquired absence of other specified parts of digestive tract; Z90.411 Acquired partial absence of pancreas
CPT/HCPCS: 36415; 80053; 81003; 82150; 83690; 85025; 99212; G0463